=== PATIENT | male | born 1955 | race Caucasian/White ===

== ENCOUNTER 2024-05-10 06:10 | Day surgery (SDC) | payer BC, MEDICARE, OTHER ==
[2024-05-03 14:31] LABS: BASOPHILS % (AUTO) 0.8 % (0-1); EOSINOPHILS # (AUTO) 0.2 X10'3 (0-0.9); EOSINOPHILS % (AUTO) 3.9 % (0-6); LYMPHOCYTES # (AUTO) 1.7 X10'3 (1.1-4.8); LYMPHOCYTES % (AUTO) 30.9 % (21-51); MEAN CORPUSCULAR HEMOGLOBIN 28.8 PG (27.0-31.0); MEAN CORPUSCULAR HGB CONC 32.4 g/dL (33.0-36.5); MEAN CORPUSCULAR VOLUME 89.1 FL (78-98); MEAN PLATELET VOLUME 7.2 FL (7.4-10.4); MONOCYTES # (AUTO) 0.7 X10'3 (0-0.9); MONOCYTES % (AUTO) 13.3 % (2-12); NEUTROPHILS # (AUTO) 2.8 X10'3 (1.8-7.7); NEUTROPHILS % (AUTO) 51.1 % (42-75); PRE OP HEMATOCRIT 38.2 % (42.0-52.0); PRE OP HEMOGLOBIN 12.4 g/dL (14.0-17.9); PRE OP PLATELET COUNT 244 X10'3 (140-440); PRE OP WHITE BLOOD COUNT 5.4 10'3 (4.8-10.8); RED BLOOD COUNT 4.29 X10'6 (4.70-6.10); RED CELL DISTRIBUTION WIDTH 15.6 % (11.5-14.5)
[2024-05-03 14:33] LABS: ALBUMIN 3.2 G/DL (3.4-5.0); ALBUMIN/GLOBULIN RATIO 0.7 (1.1-1.5); ALKALINE PHOSPHATASE 62 IU/L (46-116); BLOOD UREA NITROGEN 9 MG/DL (7-18); BUN/CREATININE RATIO 10.1 (10.0-20.0); CALCIUM 8.4 MG/DL (8.5-10.1); CHLORIDE 106 MMOL/L (99-107); CREATININE 0.89 MG/DL (0.60-1.10); PRE OP ALT 26 U/L (30-65); PRE OP ANION GAP 4 (8-16); PRE OP AST 23 U/L (10-37); PRE OP BILIRUB, TOTAL 0.5 MG/DL (0.0-1.0); PRE OP GLUCOSE 86 MG/DL (70-104); PRE OP POTASSIUM 3.6 MMOL/L (3.4-5.1); PRE OP SODIUM 142 MMOL/L (135-145); TOTAL PROTEIN 7.6 G/DL (6.4-8.2); eGFR 85 ML/MIN
[2024-05-10] VITALS (48 sets, daily range): BP systolic 113–154; BP diastolic 63–91; PULSE 69–101; RESP 10–21; TEMP 98.4–98.7; O2SAT 80–99
[~2024-05-10] VITALS: Ht 167.6 cm; Wt 111.1 kg
[2024-05-10] MEDS: ceFAZolin 2gm in dextrose, iso 50 ML IV ONE (05:30)
[~2024-05-10 06:10] MED LIST: ERYT1OIN6; FLO0.4C PO; PRED5DRO23; ROSU20TA98 PO
[2024-05-10] MEDS ORDERED: ROPIVAcaine 0.5% (5mg/ml) 30ml vial ONE (06:42)
[2024-05-10] MEDS ORDERED: BUPIVACAINE/MELOXICAM 14 ML VIAL IL ONE (06:43)
[2024-05-10] MEDS: tranexamic acid 650mg tablet PO ONE (06:55)
[2024-05-10] MEDS: VANCOMYCIN 1GM 200ML H20 (PEG) 200 ML IV ONE (06:56)
[2024-05-10] MEDS: ringers solution, lacted 1,000 ML IV SCH (06:56)
[2024-05-10] MEDS: famotidine 20mg tablet PO ONE (06:56)
[2024-05-10] MEDS ORDERED: BUPIVACAINE liposomal/PF 13.3 MG/ML 10mL vial IM ONE (09:16)
[2024-05-10] MEDS ORDERED: BUPIVAcaine/PF 7.5mg/ml (0.75%) 10ml vial ONE (09:21)
[2024-05-10] MEDS ORDERED: LIDOcaine 2% (20mg/ml) 5ml vial ONE (09:21)
[2024-05-10] MEDS ORDERED: propofol inj 20 ML IV ONE (09:21)
[2024-05-10] MEDS ORDERED: dexamethasone sod phosphate 4mg/ml inj. ONE ×2 (09:21→10:04)
[2024-05-10] MEDS ORDERED: sevoflurane 250ml liquid IH ONE (09:22)
[2024-05-10] MEDS ORDERED: midazolam 1 mg/ML 2ml injection ONE (09:24)
[2024-05-10] MEDS ORDERED: ePHEDrine 50MG/ML INJ. ONE (10:03)
[2024-05-10] MEDS ORDERED: ondansetron/PF 4mg/2ml inj ONE (10:04)
[2024-05-10] MEDS ORDERED: ringers solution, lacted 1,000 ML IV SCH (11:40)
[2024-05-10] MEDS ORDERED: hydrALAZINE 20mg/ml inj. IV PRN (11:40)
[2024-05-10] MEDS ORDERED: labetalol 20mg/4ml (5mg/ml) syringe IV PRN (11:40)
[2024-05-10] MEDS ORDERED: ondansetron/PF 4mg/2ml inj IV PRN ×2 (11:40→11:50)
[2024-05-10] MEDS ORDERED: proCHLORperazine 10 MG/2 ml inj IV PRN (11:40)
[2024-05-10] MEDS ORDERED: magnesium hydroxide 30ml (MOM) UD suspension PO PRN (11:50)
[2024-05-10] MEDS ORDERED: naloxone 0.4 mg/ml inj IV PRN (11:50)
[2024-05-10] MEDS ORDERED: bisacodyl 10mg suppository rectal RC PRN (11:50)
[2024-05-10] MEDS ORDERED: diphenhydrAMINE 25mg capsule PO PRN (11:50)
[2024-05-10] MEDS ORDERED: HYDROmorphone inj. 0.5 MG/0.5 ML DISP.SYRIN IV PRN (11:50)
[2024-05-10] MEDS ORDERED: HYDROmorphone 1 mg/ml syringe IV PRN (11:50)
[2024-05-10] MEDS ORDERED: acetaminophen 325mg tablet PO PRN (11:50)
[2024-05-10] MEDS: fentaNYL/PF 50MCG/1 ML 2ML syringe IV PRN ×2 (12:49→14:07)
[2024-05-10] MEDS: acetaminophen 325mg tablet PO SCH (14:06)
[2024-05-10] MEDS: oxyCODONE IR 5mg (immed. release) tablet PO PRN ×2 (14:41→22:23)
[2024-05-10] MEDS: ceFAZolin/D5W- 1GM premix 50 ML IV SCH (15:49)
[2024-05-10] MEDS: sennosides 8.6mg tablet PO SCH (20:46)
[2024-05-10] MEDS: VANCOMYCIN 1GM 200ML H20 (PEG) 200 ML IV SCH (20:46)
[2024-05-10] MEDS: atorvastatin 20mg tablet PO SCH (20:47)
[2024-05-10] MEDS: diphenhydrAMINE 25mg capsule PO PRN (22:22)
[2024-05-10] MEDS: potassium cl 20mEq in 1/2 NS 1,000 ML IV SCH (23:00)
[2024-05-11 02:00] VITALS: BP 132/81; PULSE 84; RESP 18; TEMP 98.5; O2SAT 93
[2024-05-11 05:50] LABS: BASOPHILS % (AUTO) 0.1 % (0-1); EOSINOPHILS % (AUTO) 0 % (0-6); HEMATOCRIT 35.4 % (42.0-52.0); HEMOGLOBIN 11.4 g/dl (14.0-17.9); LYMPHOCYTES # (AUTO) 0.9 X10'3 (1.1-4.8); LYMPHOCYTES % (AUTO) 6.6 % (21-51); MEAN CORPUSCULAR HEMOGLOBIN 29.2 PG (27.0-31.0); MEAN CORPUSCULAR HGB CONC 32.2 g/dL (33.0-36.5); MEAN CORPUSCULAR VOLUME 90.7 FL (78-98); MEAN PLATELET VOLUME 7.2 FL (7.4-10.4); MONOCYTES # (AUTO) 0.8 X10'3 (0-0.9); MONOCYTES % (AUTO) 5.8 % (2-12); NEUTROPHILS # (AUTO) 12.1 X10'3 (1.8-7.7); NEUTROPHILS % (AUTO) 87.5 % (42-75); PLATELET COUNT 218 X10'3 (140-440); RED CELL DISTRIBUTION WIDTH 15.6 % (11.5-14.5); WHITE BLOOD COUNT 13.8 X10'3 (4.5-11.0)
[2024-05-11 05:56] LABS: ANION GAP 4 (8-16); CHLORIDE 106 MMOL/L (99-107); POTASSIUM 4.3 MMOL/L (3.5-5.1); SODIUM 138 MMOL/L (135-145); TOTAL CARBON DIOXIDE 28.4 MMOL/L (24-32)
[2024-05-11 06:00] VITALS: BP 121/68; PULSE 68; RESP 18; TEMP 98; O2SAT 93
[2024-05-11] MEDS ORDERED: aspirin 325mg tablet PO SCH (08:30)
[2024-05-11] MEDS: tamsulosin 0.4mg capsule PO SCH (08:51)
[2024-05-11 08:55] VITALS: RESP 18
[2024-05-11 10:00] VITALS: BP 116/56; PULSE 49; RESP 16; TEMP 98.2; O2SAT 95
[2024-05-11 11:14] VITALS: RESP 18
[2024-05-11] MEDS ORDERED: celeCOXIB 100mg capsule PO SCH (20:00)
[2024-05-12] MEDS ORDERED: acetaminophen 325mg tablet PO PRN (18:20)
== END 2024-05-11 12:40 | disposition home or self-care (01) ==
LOC: PAS 06:10 → ORTHO 4S 18:24 → PAS 05-11 12:40
PROVIDERS: ATTEND Orthopaedic Surgery
DX: M17.11 Unilateral primary osteoarthritis, right knee (principal); M21.161 Varus deformity, not elsewhere classified, right knee; M19.90 Unspecified osteoarthritis, unspecified site; E66.9 Obesity, unspecified; M47.26 Other spondylosis with radiculopathy, lumbar region; M48.061 Spinal stenosis, lumbar region without neurogenic claudication; G47.33 Obstructive sleep apnea (adult) (pediatric); Z79.899 Other long term (current) drug therapy; Z98.890 Other specified postprocedural states; Z87.442 Personal history of urinary calculi; E78.5 Hyperlipidemia, unspecified; Z88.6 Allergy status to analgesic agent; Z79.82 Long term (current) use of aspirin; Z88.8 Allergy status to other drugs, medicaments and biological substances; Z68.39 Body mass index [BMI] 39.0-39.9, adult
CPT/HCPCS: 20985; 27447; 36415; 80051; 80053; 82948; 85025; 87081; 93005; 97110; 97116; 97161; 97530; C1776; C9290; J0690; J1100; J2003; J2250; J2405; J2704; J3010; J3372; J3480; J3490; J7030; J7120; Q0163; Z7506; Z7508; Z7512; A4215; A4615; A7000; G0378; J2795